=== PATIENT | female | born 1980 | race Caucasian/White ===

== ENCOUNTER 2019-07-24 06:58 | Emergency (ER) | payer SELFPAY ==
[2019-07-24 08:37] LABS: APPEARANCE,URINE SLIGHTLY-CLOUDY; BILIRUBIN,URINE NEGATIVE (NEGATIVE); COLOR,URINE YELLOW; GLUCOSE, URINE NEGATIVE (NEGATIVE); KETONES,URINE 80 mg/dL (NEGATIVE); LEUKOCYTE ESTERASE,URINE NEGATIVE (NEGATIVE); NITRITE,URINE NEGATIVE (NEGATIVE); PROTEIN,URINE 100 mg/dL (NEGATIVE); URINE SPECIFIC GRAVITY 1.024; UROBILINOGEN,URINE NEGATIVE mg/dL (<2.0)
[2019-07-24 08:38] LABS: HEMATOCRIT 28.9 % (36.0-47.0); HEMOGLOBIN 9.4 g/dL (12.0-15.5); MEAN CORPUSCULAR HEMOGLOBIN 24.9 pg (27.0-33.4); MEAN CORPUSCULAR HGB CONC 32.5 g/dL (32.0-36.0); MEAN CORPUSCULAR VOLUME 77 fl (80-97); PLATELET COUNT 184 10^3/uL (150-450); RED BLOOD COUNT 3.77 10^6/uL (3.72-5.28); RED CELL DISTRIBUTION WIDTH 16.4 % (11.5-14.0); WHITE BLOOD COUNT 12.2 10^3/uL (4.0-10.5)
[2019-07-24 08:50] LABS: ALBUMIN 3.5 g/dL (3.5-5.0); ALKALINE PHOSPHATASE 77 U/L (38-126); ANION GAP 9 (5-19); ASPARTATE AMINO TRANSFERASE 19 U/L (14-36); BILIRUBIN,DIRECT 0.1 mg/dL (0.0-0.4); BILIRUBIN,TOTAL 0.6 mg/dL (0.2-1.3); BLOOD UREA NITROGEN 13 mg/dL (7-20); CALCIUM 8.5 mg/dL (8.4-10.2); CARBON DIOXIDE 24 mmol/L (22-30); CHLORIDE 104 mmol/L (98-107); GLUCOSE 147 mg/dL (75-110); POTASSIUM 3.4 mmol/L (3.6-5.0); TOTAL PROTEIN 6.4 g/dL (6.3-8.2)
[2019-07-24 09:01] LABS: ABSOLUTE LYMPHOCYTES# (MANUAL) 0.2 10^3/uL (0.5-4.7); ABSOLUTE MONOCYTES # (MANUAL) 0.2 10^3/uL (0.1-1.4); BAND NEUTROPHILS % (MANUAL) 4 % (3-5); BASOPHILS % (MANUAL) 0 % (0-2); EOSINOPHILS % (MANUAL) 1 % (0-6); LYMPHOCYTES % (MANUAL) 2 % (13-45); MONOCYTES % (MANUAL) 2 % (3-13); SEGMENTED NEUTROPHILS % (MAN) 91 % (42-78); TOTAL CELLS COUNTED 100
[2019-07-24 09:02] LABS: HYPOCHROMASIA SLIGHT; TOXIC GRANULATION SLIGHT; TOXIC VACUOLATION PRESENT
[2019-07-24 09:03] LABS: ANISOCYTOSIS 1+; PLATELET COMMENT ADEQUATE
[2019-07-24] MEDS ORDERED: NORMAL SALINE 1000 ML 1,000 ML IV ONE (09:27)
[2019-07-24] MEDS ORDERED: KETOROLAC TROMETHAMINE INJ/PF 30 MG/1 ML SDV IV ONE (09:27)
[2019-07-24] MEDS ORDERED: ACETAMINOPHEN 325 MG TABLET PO ONE (09:28)
--- NOTE | 2019-07-24 09:30 | ER Document Report ---
ED Medical Screen (RME) - General Chief Complaint: Abdominal Pain Stated Complaint: ABDOMINAL PAIN Time Seen by Provider: 07/24/19 09:20 Primary Care Provider: MELODY KAUFFMAN PA-C [Primary Care Provider] - Follow up as needed Notes: Patient is a 38-year-old female with a history of pancreatitis who presents emergency department with a chief complaint of abdominal pain, lung pain and headache. Patient reports she has had generalized body aches for 2 days. Patient reports on Thursday she did vomit over 10 times which has subsided but she has had a decreased appetite. Patient reports at that time she did have a co uple of episodes of diarrhea without blood. Patient reports having a temperature as high as 102.8 at home. Patient reports a productive cough with brown sputum. 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 Patient reports a frontal headache. Patient reports generalized abdominal pain. TRAVEL OUTSIDE OF THE [place] IN LAST 30 DAYS: No - Related Data Allergies/Adverse Reactions: No Known Allergies Allergy (Verified 07/24/19 07:34) Past Medical History GI Medical History: Reports: Hx Gastroesophageal Reflux Disease - OCCASSIONAL. Denies: Hx Hiatal Hernia, Hx Ulcer Past Surgical History: Reports: Hx Section, Hx Cholecystectomy Physical Exam - Vital signs Vitals: Temp Pulse Resp BP Pulse Ox 101.6 F H 132 H 16 112/63 98 07/24/19 07:08 07/24/19 07:08 07/24/19 07:08 07/24/19 07:08 07/24/19 07:08 - Respiratory Respiratory status: No respiratory distress Chest status: Nontender Breath sounds: Normal Chest palpation: Normal Notes: Constant nonproductive cough noted during examination. - Cardiovascular Rhythm: Tachycardia Heart sounds: Normal auscultation, S1 appreciated, S2 appreciated - Abdominal Inspection: Normal Distension: No distension Bowel sounds: Normal Tenderness: Nontender Organomegaly: No organomegaly - No specific point tenderness to the abdomen. Course - Re-evaluation Re-evalutation: 07/24/19 09:30 Patient was noted to have a fever, is tachycardic and slightly dehydrated with ketones in the urine. Will start IV fluids, give Toradol for the body aches, Tylenol for her fever and test for the flu. Patient does have nonspecific abdominal pain and no point tenderness. No CVA tenderness. I have greeted and performed a rapid initial assessment of this patient. A comprehensive ED assessment and evaluation of the patient, analysis of test results and completion of the medical decision making process will be conducted by additional ED providers. - Vital Signs Vital signs: Temp Pulse Resp BP Pulse Ox 101.6 F H 132 H 16 112/63 98 07/24/19 07:08 07/24/19 07:08 07/24/19 07:08 07/24/19 07:08 07/24/19 07:08 - Laboratory Result Diagrams: 07/24/19 08:15 07/24/19 08:15 Laboratory results interpreted by me: 07/24/19 07/24/19 07/24/19 08:15 08:15 08:15 WBC 12.2 H Hgb 9.4 L Hct 28.9 L MCV 77 L MCH 24.9 L RDW 16.4 H Seg Neuts % (Manual) 91 H Lymphocytes % (Manual) 2 L Monocytes % (Manual) 2 L Abs Neuts (Manual) 11.6 H Abs Lymphs (Manual) 0.2 L Sodium 136.6 L Potassium 3.4 L Glucose 147 H Urine Protein 100 H Urine Ketones 80 H Urine Blood MODERATE H Doctor's Discharge - Discharge Referrals: MELODY KAUFFMAN PA-C [Primary Care Provider] - Follow up as needed
[2019-07-24 10:17] LABS: A TYPE INFLUENZA AG NEGATIVE (NEGATIVE); B INFLUENZA AG POSITIVE (NEGATIVE)
[2019-07-24] MEDS ORDERED: ONDANSETRON HCL INJ/PF 4 MG/2 ML SDV IV ONE (10:25)
--- NOTE | 2019-07-24 10:31 | ER Document Report ---
ED General - General Chief Complaint: Abdominal Pain Stated Complaint: ABDOMINAL PAIN Time Seen by Provider: 07/24/19 09:20 Primary Care Provider: MELODY KAUFFMAN PA-C [Primary Care Provider] - Follow up as needed Notes: 38-year-old female presents emergency department complaining of fever and vomiting since Thursday. She is felt a little better on Thursday but then the fever and vomiting returned today. She admits to a dry cough and postnasal drip, denies rhinorrhea. Patient has a history of pancreatitis and denies any similar symptoms. 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 TRAVEL OUTSIDE OF THE [place] IN LAST 30 DAYS: No - Related Data Allergies/Adverse Reactions: No Known Allergies Allergy (Verified 07/24/19 07:34) Past Medical History - General Information source: Patient - Social History Smoking Status: Never Smoker Frequency of alcohol use: None Drug Abuse: None Family History: Reviewed & Not Pertinent Patient has suicidal ideation: No Patient has homicidal ideation: No GI Medical History: Reports: Hx Gastroesophageal Reflux Disease - OCCASSIONAL. Denies: Hx Hiatal Hernia, Hx Ulcer Past Surgical History: Reports: Hx Section, Hx Cholecystectomy Review of Systems - Review of Systems Constitutional: See HPI EENT: See HPI Cardiovascular: No symptoms reported Respiratory: See HPI, Cough Gastrointestinal: See HPI -: Yes All other systems reviewed and negative Physical Exam - Vital signs Vitals: Temp Pulse Resp BP Pulse Ox 101.6 F H 132 H 16 112/63 98 07/24/19 07:08 07/24/19 07:08 07/24/19 07:08 07/24/19 07:08 07/24/19 07:08 Interpretation: Tachycardic, Febrile - Notes Notes: GENERAL: Alert, interacts well. No acute distress. HEAD: Normocephalic, atraumatic EYES: Pupils equal, round and reactive to light, extraocular movements intact. ENT: Oral mucosa moist, tongue midline. NECK: Full range of motion, supple, trachea midline. LUNGS: Clear to auscultation bilaterally, no wheezes, rales or rhonchi, no respiratory distress. HEART: Tachycardic rate and rhythm, no to 6 systolic murmur, no gallops or rubs. ABDOMEN: Soft, mild epigastric tenderness palpation, nondistended, bowel sounds present in all 4 quadrants. EXTREMITIES: Moves all 4 extremities spontaneously, no edema, radial and dorsalis pedis pulses 2/4 bilaterally. No cyanosis. NEUROLOGICAL: Alert and oriented x3, normal speech. PSYCH: Normal mood, normal affect. SKIN: Warm, Dry, normal turgor, no rashes or lesions noted. Course - Re-evaluation Re-evalutation: 07/24/19 11:27 CBC shows leukocytosis at 12.2, anemia with a hemoglobin of 9.4, likely iron deficiency given the MCV and MCH, patient asked to follow-up on this as an outpatient, CMP shows slightly low sodium and potassium, test negative and lipase are negative, urinalysis shows moderate blood, 80 ketones, only 4 RBCs, influenza B is positive. Patient has been given 2 L of fluid, she is tolerating oral intake without d ifficulty, discussed risks and benefits and side effects of Tamiflu with the patient, patient opted for symptomatic treatment instead. Patient will be discharged to home. - Vital Signs Vital signs: Temp Pulse Resp BP Pulse Ox 101.6 F H 132 H 16 112/63 98 07/24/19 07:08 07/24/19 07:08 07/24/19 07:08 07/24/19 07:08 07/24/19 07:08 - Laboratory Result Diagrams: 07/24/19 08:15 07/24/19 08:15 Laboratory results interpreted by me: 07/24/19 07/24/19 07/24/19 08:15 08:15 08:15 WBC 12.2 H Hgb 9.4 L Hct 28.9 L MCV 77 L MCH 24.9 L RDW 16.4 H Seg Neuts % (Manual) 91 H Lymphocytes % (Manual) 2 L Monocytes % (Manual) 2 L Abs Neuts (Manual) 11.6 H Abs Lymphs (Manual) 0.2 L Sodium 136.6 L Potassium 3.4 L Glucose 147 H Urine Protein 100 H Urine Ketones 80 H Urine Blood MODERATE H Discharge - Discharge Clinical Impression: Influenza B Anemia Qualifiers: Anemia type: iron deficiency Iron deficiency anemia type: unspecified iron deficiency Qualified Code(s): D50.9 - Iron deficiency anemia, unspecified Condition: Stable Disposition: HOME, SELF-CARE Additional Instructions: You tested positive for influenza B. Symptoms can include nausea, vomiting, diarrhea, fevers, muscle aches, headache, sore throat, runny nose. If any of your symptoms worsen please return to the emergency department. If you develop a severely stiff neck that you cannot bend please return to the emergency department. I have prescribed multiple medications to help with your symptoms. You may take the Zofran and Phenergan for nausea and vomiting, you may take the Bentyl for abdominal cramping, you may buy Imodium [id number] and used according to the box for diarrhea, you may use the Tessalon Perles as prescribed for cough. Please use ibuprofen (Motrin or Advil) 600-800 mg every 8 hours as needed for pain or fever. You may also use acetaminophen (Tylenol) 1000 mg every 4-6 hours as needed for pain or fever. Please be aware that many medications contain acetaminophen, do not exceed a total of 1000 mg of acetaminophen every 6 hours. Your testing also showed that you are anemic. Today her hemoglobin was 9.4. Looking at your CBC it appears that is likely from iron deficiency. Please follow-up with your primary care physician for further testing and treatment options. You were also found to have a very mild heart murmur today. Please follow-up with your primary care physician to make sure that this is recorded in your chart and to see if it is still there after the flu is gone. Prescriptions: Promethazine HCl [Phenergan 25 mg Tablet] 25 mg PO Q4HP PRN #20 tablet PRN Reason: Ondansetron [Zofran Odt 4 mg Tablet] 4 mg PO Q4HP PRN #14 tab.rapdis PRN Reason: Benzonatate [Tessalon Perles 100 mg Capsule] 100 mg PO Q8HP PRN #40 capsule PRN Reason: Dicyclomine HCl [Bentyl 20 mg Tablet] 20 mg PO QIDP PRN #20 tablet PRN Reason: Forms: Return to Work Referrals: MELODY KAUFFMAN PA-C [Primary Care Provider] - Follow up as needed
[2019-07-24 11:48] VITALS: BP 94/57
== END 2019-07-24 11:49 | disposition home or self-care (01) ==
LOC: ER 06:58
DX: J11.1 Influenza due to unidentified influenza virus with other respiratory manifestations (principal); D50.9 Iron deficiency anemia, unspecified; R10.9 Unspecified abdominal pain; R11.10 Vomiting, unspecified; R50.9 Fever, unspecified; Z90.49 Acquired absence of other specified parts of digestive tract
CPT/HCPCS: 99284; 96361; 96374; 96375; 36415; 84702; 83690; 85025; 80053; 81001; 87804; J1885; J2405; J7030

== ENCOUNTER 2019-07-31 17:21 | Observation (INO) | payer SELFPAY ==
[2019-07-31] MEDS ORDERED: NORMAL SALINE 1000 ML 1,000 ML IV ONE (17:46)
[2019-07-31] MEDS ORDERED: KETOROLAC TROMETHAMINE INJ/PF 30 MG/1 ML SDV IV ONE (17:46)
[2019-07-31] MEDS ORDERED: IPRATROPIUM/ALBUTEROL 0.5-2.5 MG/3 ML AMPUL NEB ONE ×2 (17:46→20:18)
--- NOTE | 2019-07-31 17:49 | ER Document Report ---
ED Medical Screen (RME) - General Chief Complaint: Cough Stated Complaint: COUGH,FEVER,CONGESTION Time Seen by Provider: 07/31/19 17:41 Primary Care Provider: MELODY KAUFFMAN PA-C [Primary Care Provider] - Follow up as needed TRAVEL OUTSIDE OF THE [place] IN LAST 30 DAYS: No - HPI Notes: 07/31/19 17:47 38 year old female to the ED with C/O persistent cough, fevers, chest tightness, congestion, body aches for over two weeks. She was seen one week ago and diagnosed with Flu B. She was out of range for treatment with Tamflu and was given Tessalon Perles. They did not help. She has been taking Tylenol and Motrin for fevers, but she has had difficulty controlling them. States her last dose of Tylenol was at 3 PM -- she has a triage temperature of 101. Admits to some occasional NV as well as SOB. I performed a brief medical screening exam on the patient and determined that the patient will need further management by mainside provider. I have placed initial orders to help expedite the patient's care today. - Related Data Allergies/Adverse Reactions: No Known Allergies Allergy (Verified 07/31/19 17:40) Past Medical History - Social History Chew tobacco use (# tins/day): No Drug Abuse: None GI Medical History: Reports: Hx Gastroesophageal Reflux Disease - OCCASSIONAL. Denies: Hx Hiatal Hernia, Hx Ulcer Past Surgical History: Reports: Hx Section, Hx Cholecystectomy Physical Exam - Vital signs Vitals: Temp Pulse Resp BP Pulse Ox 101.0 F H 121 H 18 129/75 H 96 07/31/19 17:28 07/31/19 17:28 07/31/19 17:28 07/31/19 17:28 07/31/19 17:28 Course - Vital Signs Vital signs: Temp Pulse Resp BP Pulse Ox 101.0 F H 121 H 18 129/75 H 96 07/31/19 17:40 07/31/19 17:28 07/31/19 17:40 07/31/19 17:28 07/31/19 17:40 Doctor's Discharge - Discharge Referrals: MELODY KAUFFMAN PA-C [Primary Care Provider] - Follow up as needed
[2019-07-31 18:49] LABS: ABSOLUTE BASOPHILS # (AUTO) 0.1 10^3/uL (0.0-0.2); ABSOLUTE EOSINOPHILS # (AUTO) 0.1 10^3/uL (0.0-0.6); ABSOLUTE LYMPHOCYTES (AUTO) 1.1 10^3/uL (0.5-4.7); ABSOLUTE MONOCYTES (AUTO) 0.7 10^3/uL (0.1-1.4); ABSOLUTE NEUT (AUTO) 11.5 10^3/uL (1.7-8.2); BASOPHILS % (AUTO) 0.6 % (0-2); EOSINOPHILS % (AUTO) 0.5 % (0-6); HEMATOCRIT 28.6 % (36.0-47.0); HEMOGLOBIN 9.1 g/dL (12.0-15.5); LYMPHOCYTES % (AUTO) 7.9 % (13-45); MEAN CORPUSCULAR HEMOGLOBIN 24.9 pg (27.0-33.4); MEAN CORPUSCULAR HGB CONC 31.9 g/dL (32.0-36.0); MEAN CORPUSCULAR VOLUME 78 fl (80-97); PLATELET COUNT 465 10^3/uL (150-450); RED BLOOD COUNT 3.67 10^6/uL (3.72-5.28); RED CELL DISTRIBUTION WIDTH 16.5 % (11.5-14.0); TOTAL CELLS COUNTED % (AUTO) 100 %; WHITE BLOOD COUNT 13.4 10^3/uL (4.0-10.5)
[2019-07-31 19:11] LABS: ALBUMIN 3.5 g/dL (3.5-5.0); ALKALINE PHOSPHATASE 107 U/L (38-126); ANION GAP 13 (5-19); ASPARTATE AMINO TRANSFERASE 21 U/L (14-36); BILIRUBIN,DIRECT 0.1 mg/dL (0.0-0.4); BILIRUBIN,TOTAL 0.5 mg/dL (0.2-1.3); BLOOD UREA NITROGEN 10 mg/dL (7-20); CALCIUM 8.6 mg/dL (8.4-10.2); CARBON DIOXIDE 26 mmol/L (22-30); CHLORIDE 100 mmol/L (98-107); GLUCOSE 100 mg/dL (75-110); POTASSIUM 4.3 mmol/L (3.6-5.0); TOTAL PROTEIN 6.8 g/dL (6.3-8.2)
--- NOTE | 2019-07-31 19:57 | RADIOLOGY REPORT (SQ) ---
EXAM DESCRIPTION: CHEST 2 VIEWS COMPLETED DATE/TIME: 07/31/2019 7:44 pm REASON FOR STUDY: cough, persistent fevers, recently diagnosed w flu COMPARISON: None. EXAM PARAMETERS: NUMBER OF VIEWS: two views TECHNIQUE: Digital Frontal and Lateral radiographic views of the chest acquired. RADIATION DOSE: NA LIMITATIONS: none FINDINGS: LUNGS AND PLEURA: No pneumothorax. No pleural effusion. Right upper lobe dense consolidat ion. MEDIASTINUM AND HILAR STRUCTURES: No masses or contour abnormalities. HEART AND VASCULAR STRUCTURES: Heart normal size. No evidence for failure. BONES: No acute findings. HARDWARE: None in the chest. OTHER: No other significant finding. IMPRESSION: Right upper lobe dense consolidation. TECHNICAL DOCUMENTATION: JOB ID: [id number] [id number] 2010 [employer]- All Rights Reserved Reading location - IP/workstation name: [employer]
[2019-07-31] MEDS ORDERED: KETOROLAC TROMETHAMINE INJ/PF 30 MG/1 ML SDV ONE (20:18)
[2019-07-31] MEDS ORDERED: ACETAMINOPHEN 325 MG TABLET PO ONE (20:22)
[2019-07-31 20:45] LABS: VENOUS BLOOD BASE EXCESS 0.2 mmol/L; VENOUS BLOOD HCO3 24.2 mmol/L (20-32); VENOUS BLOOD PH 7.43 (7.30-7.42)
[2019-07-31 20:51] LABS: PROTHROMBIN TIME 14.2 SEC (11.4-15.4)
[2019-07-31] MEDS ORDERED: CEFTRIAXONE INJ 1000 MG VIAL IV ONE (21:17)
[2019-07-31] MEDS ORDERED: AZITHROMYCIN INJ 500 MG VIAL IV ONE (21:19)
[2019-07-31] MEDS ORDERED: NORMAL SALINE IV ONE (21:21)
--- NOTE | 2019-07-31 21:30 | ER Document Report ---
ED Respiratory Problem - General Chief Complaint: Flu Symptoms Stated Complaint: COUGH,FEVER,CONGESTION Time Seen by Provider: 07/31/19 17:41 Primary Care Provider: MELODY KAUFFMAN PA-C [Primary Care Provider] - Follow up as needed Notes: 38-year-old woman presents to the emergency department history of fever, cough and feeling poorly. Currently seen and diagnosed with influenza approximately 1 week ago. Flu A positive, states she has continued to feel poorly with decreased appetite and intermittent fever, fatigue. Patient was evaluated via the triage process elevated white blood cell count and a right upper lobe consolidation noted on chest x-ray. Sepsis protocol was begun. Patient has no other known active medical conditions and is on no chronic medications. TRAVEL OUTSIDE OF THE [place] IN LAST 30 DAYS: No - Related Data Allergies/Adverse Reactions: No Known Allergies Allergy (Verified 07/31/19 17:40) Past Medical History - Social History Smoking Status: Never Smoker Chew tobacco use (# tins/day): No Drug Abuse: None Family History: Reviewed & Not Pertinent Patient has suicidal ideation: No Patient has homicidal ideation: No GI Medical History: Reports: Hx Gastroesophageal Reflux Disease - OCCASSIONAL. Denies: Hx Hiatal Hernia, Hx Ulcer Past Surgical History: Reports: Hx Section, Hx Cholecystectomy Review of Systems - Review of Systems Notes: Constitutional: + Fever, + Loss of appetite HENT: Negative for sore throat. Eyes: Negative for visual changes. Cardiovascular: Negative for chest pain. Respiratory: + Cough, + shortness of breath. Gastrointestinal: Negative for abdominal pain, vomiting or diarrhea. Genitourinary: Negative for dysuria. Musculoskeletal: Negative for back pain. Skin: Negative for rash. Neurological: Negative for headaches, weakness or numbness. 10 point ROS negative except as marked above and in HPI. Physical Exam - Vital signs Vitals: Temp Pulse Resp BP Pulse Ox 101.0 F H 121 H 18 129/75 H 96 07/31/19 17:28 07/31/19 17:28 07/31/19 17:28 07/31/19 17:28 07/31/19 17:28 - Notes Notes: PHYSICAL EXAMINATION: Physical Exam: General: Ill appearing 38-year-old woman in no acute distress HEENT: NC/AT, pupils equal round and reactive to light, MM moist,nares clear, Neck: supple, no adenopathy, no masses. Lungs: Coarse breath sounds right lung field, no wheezing, no rales no rhonchi CVS: Tachycardia rate and rhythm no murmur gallop or rub Abdomen: Soft, active nontender, no masses, no hepatosplenomegaly Ext: No edema clubbing or cyanosis. Neuro: Alert and responsive, moving all 4 extremities on command, cranial nerves intact. Skin: Intact no open lesions, no rash PSYCH: Normal mood, normal affect. Course - Re-evaluation Re-evalutation: Differential diagnosis Electrolyte imbalance, infection, pneumonia, bronchitis 07/31/19 21:31 38-year-old woman post influenza pneumonia. Apparently continued fever, fatigue, chills, and shortness of breath with cough. X-ray reveals a right upper lobe consolidation, elevated WBC and patient appears ill. I discussed wi th her the need for IV antibiotics and observation in the hospital with further testing and monitoring. Patient is agreeable with that plan. The hospitalist Dr Valero was contacted and will admit the patient to the hospital for further evaluation and treatment. 07/31/19 21:34 - Vital Signs Vital signs: Temp Pulse Resp BP Pulse Ox 101.0 F H 121 H 18 129/75 H 97 07/31/19 17:40 07/31/19 17:28 07/31/19 17:40 07/31/19 17:28 07/31/19 20:45 - Laboratory Result Diagrams: 07/31/19 18:32 07/31/19 18:32 Laboratory results interpreted by me: 07/31/19 07/31/19 07/31/19 18:32 18:32 20:32 WBC 13.4 H RBC 3.67 L Hgb 9.1 L Hct 28.6 L MCV 78 L MCH 24.9 L MCHC 31.9 L RDW 16.5 H Plt Count 465 H Lymph % (Auto) 7.9 L Absolute Neuts (auto) 11.5 H Seg Neutrophils % 86.0 H VBG pH 7.43 H Creatinine 0.50 L 07/31/19 21:33 I have reviewed laboratory data and used this information for the treatment decisions regarding the patient. Discharge - Discharge Clinical Impression: Shortness of breath, Tachycardia, Fever Community acquired pneumonia Qualifiers: Laterality: right Lung location: upper lobe of lung Qualified Code(s): J18.9 - Pneumonia, unspecified organism Disposition: ADMITTED OBSERVATION Admitting Provider: Clarence (Hospitalist) Unit Admitted: Medical Floor Referrals: MELODY KAUFFMAN PA-C [Primary Care Provider] - Follow up as needed
[2019-07-31] MEDS ORDERED: MAG HYDROX/AL HYDROX/SIMETH SUSP 30 ML UDCUP PO PRN (22:05)
[2019-07-31] MEDS ORDERED: MORPHINE SULFATE 10 MG/ML INJ IV PRN ×2 (22:05)
[2019-07-31] MEDS ORDERED: MAGNESIUM HYDROXIDE SUSP 30 ML UDCUP PO PRN (22:05)
[2019-07-31] MEDS ORDERED: MELATONIN 5 MG TABLET PO PRN (22:18)
--- NOTE | 2019-07-31 22:21 | EKG REPORT ---
SEVERITY:- OTHERWISE NORMAL ECG - SINUS TACHYCARDIA : Confirmed by: Adrián Alcantara MD 31-Jul-2019 22:21:13
[2019-07-31] MEDS ORDERED: AZITHROMYCIN INJ 500 MG VIAL IV PRN (22:25)
[2019-07-31] MEDS ORDERED: AZITHROMYCIN 500 MG in DEXTROSE 5%-WATER 250 ML IV ONE (23:00)
[2019-07-31] MEDS: IBUPROFEN 800 MG TABLET PO SCH (23:28)
[2019-07-31] MEDS: ACETAMINOPHEN 325 MG TABLET PO SCH (23:28)
[2019-07-31] MEDS: GUAIFENESIN SYRP 200 MG/10 ML UDC PO SCH (23:28)
[2019-07-31] MEDS: FAMOTIDINE 20 MG TABLET PO SCH (23:28)
[2019-07-31] MEDS: HEPARIN SOD (PORCINE) 5,000 UNIT/ML 1 ML VIAL SUBCUT SCH (23:30)
[2019-08-01] MEDS: GUAIFENESIN SYRP 200 MG/10 ML UDC PO SCH ×6 (01:01→21:05)
[2019-08-01] MEDS: ACETAMINOPHEN 325 MG TABLET PO SCH ×6 (01:01→21:05)
--- NOTE | 2019-08-01 03:08 | PDOC H&P ---
History of Present Illness Admission Date/PCP: 07/31/2019 21:35 MELODY KAUFFMAN PA-C Patient complains of: Cough History of Present Illness: IVIS FRIEDMAN is a 38 year old female who represented to the emergency room with a two-week history of cough. She endorses a severe nonproductive cough that has been present for the last 2 weeks accompanied by anorexia, continuous malaise and ague, persistent chest burning/tightness, intermittent dyspnea especially with exertion and intermittent fever and chills. Her cough is made worse by deep breathing and talking. She was seen in the emergency room 1 week ago and was treated with Tamiflu for a positive influenza B test. She gained no relief from taking Tamiflu, Tessalon Perles, Bentyl, Phenergan and Zofran and has been having difficulty controlling her fever despite taking Tylenol and Motrin. In the emergency room she was found to have an elevated WBC of 13,400 and a chest x-ray revealing a right upper lobe pneumonia. She was subsequently admitted to the hospital on inpatient observation status for further evaluation and treatment. Past Medical History Cardiac Medical History: Denies: Coronary Artery Disease, Hypertension Pulmonary Medical History: Denies: Asthma, Chronic Obstructive Pulmonary Disease (COPD) EENT Medical History: Denies: Cataracts, Ears - Hearing aids Neurological Medical History: Denies: Hemorrhagic CVA, Ischemic CVA, Seizures Endocrine Medical History: Denies: Diabetes Mellitus Type 1, Diabetes Mellitus Type 2, Hyperthyroidism, Hypothyroidism, Obesity Renal/ Medical History: Denies: Chronic Kidney Disease, Nephrolithiasis Malignancy Medical History: Reports: None GI Medical History: Reports: Gastroesophageal Reflux Disease Denies: Cirrhosis, Crohn's Disease, Hepatitis, Hiatal Hernia, Peptic Ulcer Disease, Ulcerative Colitis Musculoskeltal Medical History: Denies: Arthritis, Fibromyalgia, Gout Skin Medical History: Denies: Eczema, Psoriasis Psychiatric Medical History: Denies: Alcohol Dependency, Substance Abuse, Tobacco Dependency Traumatic Medical History: Reports: None Hematology: Denies: Anemia, Bleeding Tendencies Infectious Medical History: Reports: None Past Surgical History Past Surgical History: Reports: Section - X 2, Cholecystectomy Social History Information Source: Patient Lives with: Family, Spouse/Significant other Smoking Status: Never Smoker Electronic Cigarette use?: No Frequency of Alcohol Use: None Hx Recreational Drug Use: No Drugs: None Hx Prescription Drug Abuse: No - Advance Directive Resuscitation Status: Full Code Surrogate healthcare decision maker:: Sandor Eyota Family History Family History: denies: CAD, DM, Hypertension, Malignancy Parental Family History Reviewed: Yes Children Family History Reviewed: No Sibling(s) Family History Reviewed.: Yes Medication/Allergy Home Medications: Amox Tr/Potassium Clavulanate [Augmentin 875-125 Tablet] 1 tab PO BID 7 Days tablet 02/25/15 Benzonatate [Tessalon Perles 100 mg Capsule] 100 mg PO Q8HP PRN #40 capsule 07/24/19 Dicyclomine HCl [Bentyl 20 mg Tablet] 20 mg PO QIDP PRN #20 tablet 07/24/19 Ondansetron [Zofran Odt 4 mg Tablet] 4 mg PO Q4HP PRN #14 tab.rapdis 07/24/19 Promethazine HCl [Phenergan 25 mg Tablet] 25 mg PO Q4HP PRN #20 tablet 07/24/19 Allergies/Adverse Reactions: No Known Allergies Allergy (Verified 07/31/19 17:40) Review of Systems Constitutional: PRESENT: as per HPI, anorexia, chills, fever(s), other - Malaise and ague Eyes: ABSENT: visual disturbances, other Ears: ABSENT: hearing changes, other Nose, Mouth, and Throat: ABSENT: mouth pain, sore throat Cardiovascular: PRESENT: as per HPI, chest pain, dyspnea on exertion. ABSENT: palpitations Respiratory: PRESENT: as per HPI, cough, dyspnea. ABSENT: sputum Gastrointestinal: ABSENT: abdominal pain, constipation, diarrhea, nausea, vomiting Genitourinary: ABSENT: dysuria, hematuria Musculoskeletal: ABSENT: back pain, joint swelling, muscle weakness Integumentary: ABSENT: pruritus, rash Neurological: ABSENT: confusion, convulsions, focal weakness, memory loss, syncope Psychiatric: ABSENT: anxiety, depression Endocrine: ABSENT: cold intolerance, heat intolerance Hematologic/Lymphatic: ABSENT: easy bleeding, easy bruising Allergic/Immunologic: ABSENT: seasonal rhinorrhea Physical Exam Vital Signs: Temp Pulse Resp BP Pulse Ox 101.0 F H 121 H 18 129/75 H 97 07/31/19 17:40 07/31/19 17:28 07/31/19 17:40 07/31/19 17:28 07/31/19 20:45 Intake & Output 07/29/19 07/30/19 07/31/19 23:59 23:59 23:59 Weight 53.7 kg General appearance: PRESENT: cooperative, mild distress, other - Appears acutely ill Head exam: PRESENT: atraumatic, normocephalic Eye exam: PRESENT: conjunctiva pink. ABSENT: conjunctival injection, scleral icterus Ear exam: PRESENT: normal external ear exam. ABSENT: bleeding, drainage Mouth exam: PRESENT: dry mucosa, neck supple Neck exam: ABSENT: thyromegaly, tracheal deviation Respiratory exam: PRESENT: decreased breath sounds - Right upper lung rodriguez, rales - Few coarse rales noted in the right upper lung field. Anteriorly and posteriorly, rhonchi - Rare coarse rhonchi noted in the right upper lung rodriguez, symmetrical, tachypnea, unlabored Cardiovascular exam: PRESENT: RRR, tachycardia. ABSENT: clicks, gallop, rubs Pulses: PRESENT: normal radial pulses, normal dorsalis pedis pul Vascular exam: PRESENT: normal capillary refill. ABSENT: pallor GI/Abdominal exam: PRESENT: normal bowel sounds, soft Rectal exam: PRESENT: deferred Extremities exam: ABSENT: joint swelling, pedal edema Musculoskeletal exam: ABSENT: deformity, dislocation Neurological exam: PRESENT: alert, oriented to person, oriented to place, oriented to time, oriented to situation, CN II-XII grossly intact. ABSENT: motor sensory deficit Psychiatric exam: PRESENT: appropriate affect, normal mood Skin exam: PRESENT: dry, intact, warm. ABSENT: jaundice, rash, urticaria Results Laboratory Results: 07/31/19 18:32 07/31/19 18:32 07/31/19 07/31/19 07/31/19 18:32 18:32 18:32 WBC 13.4 H RBC 3.67 L Hgb 9.1 L Hct 28.6 L MCV 78 L MCH 24.9 L MCHC 31.9 L RDW 16.5 H Plt Count 465 H Seg Neutrophils % 86.0 H VBG pH VBG pCO2 VBG HCO3 VBG Base Excess Sodium 139.0 Potassium 4.3 Chloride 100 Carbon Dioxide 26 Anion Gap 13 BUN 10 Creatinine 0.50 L Est GFR ( Amer) > 60 Glucose 100 Calcium 8.6 Total Bilirubin 0.5 AST 21 Alkaline Phosphatase 107 Total Protein 6.8 Albumin 3.5 Serum HCG, Qual NEGATIVE 07/31/19 20:32 WBC RBC Hgb Hct MCV MCH MCHC RDW Plt Count Seg Neutrophils % VBG pH 7.43 H VBG pCO2 37.0 VBG HCO3 24.2 VBG Base Excess 0.2 Sodium Potassium Chloride Carbon Dioxide Anion Gap BUN Creatinine Est GFR ( Amer) Glucose Calcium Total Bilirubin AST Alkaline Phosphatase Total Protein Albumin Serum HCG, Qual 07/31/19 20:32 Troponin I < 0.012 Impressions: Chest X-Ray 07/31/19 17:46 IMPRESSION: Right upper lobe dense consolidation. Assessment and Plan - Diagnosis (1) Right upper lobe pneumonia Qualifiers: Pneumonia type: due to unspecified organism Qualified Code(s): J18.9 - Pneumonia, unspecified organism Is this a current diagnosis for this admission?: Yes (2) Leukocytosis Qualifiers: Leukocytosis type: unspecified Qualified Code(s): D72.829 - Elevated white blood cell count, unspecified Is this a current diagnosis for this admission?: Yes (3) Fever and chills Is this a current diagnosis for this admission?: Yes (4) Cough Is this a current diagnosis for this admission?: Yes - Plan Summary Summary: Patient is admitted to inpatient observation status on a medical floor where she will receive routine supportive and symptomatic cares. She will be treated with a pulmonary toilet utilizing Xopenex and Mucomyst. She will receive ibuprofen and acetaminophen on a scheduled basis for control of her fever. She will be treated with Rocephin and Zithromax as a community-acquired pneumonia. She will use morphine sulfate 2 to 4 mg IV every 2 hours on an as-needed basis for control of pain not responding to her scheduled acetaminophen and ibuprofen regimen. CBC's and metabolic profiles will be followed as needed. - Time Time Spent with patient: 15-24 minutes Medications reviewed and adjusted accordingly: Yes Anticipated discharge: Home Within: within 48 hours - Inpatient Certification Based on my medical assessment, after consideration of the patient's comorbidities, presenting symptoms, or acuity I expect that the services needed warrant INPATIENT care.: No I certify that my determination is in accordance with my understanding of Medicare's requirements for reasonable and necessary INPATIENT services [42 CFR 412.3e].: No Medical Necessity: Failure to Improve With Outpatient Therapy, Need for Nebulizer Therapy and Monitoring of Response
[2019-08-01 03:17] LABS: MEAN CORPUSCULAR HGB CONC 32.4 g/dL (32.0-36.0); MEAN CORPUSCULAR VOLUME 77 fl (80-97); PLATELET COUNT 293 10^3/uL (150-450); RED BLOOD COUNT 2.86 10^6/uL (3.72-5.28); RED CELL DISTRIBUTION WIDTH 16.1 % (11.5-14.0); WHITE BLOOD COUNT 9.7 10^3/uL (4.0-10.5)
[2019-08-01 03:21] LABS: HEMOGLOBIN 7.1 g/dL (12.0-15.5)
[2019-08-01 03:37] LABS: ANION GAP 9 (5-19); BLOOD UREA NITROGEN 6 mg/dL (7-20); CALCIUM 7.3 mg/dL (8.4-10.2); CARBON DIOXIDE 22 mmol/L (22-30); CHLORIDE 111 mmol/L (98-107); GLUCOSE 107 mg/dL (75-110); POTASSIUM 3.5 mmol/L (3.6-5.0)
[2019-08-01] MEDS: HEPARIN SOD (PORCINE) 5,000 UNIT/ML 1 ML VIAL SUBCUT SCH ×3 (05:49→21:06)
[2019-08-01] MEDS: IBUPROFEN 800 MG TABLET PO SCH ×3 (05:50→21:58)
[2019-08-01 07:13] LABS: IRON(TIBC) 14.9 ug/dL (37-170)
[2019-08-01 07:15] LABS: ABSOLUTE RETICS # 0.017 10^6/uL (0.028-0.122)
[2019-08-01] MEDS: ACETYLCYSTEINE 20% SOLN 800 MG/4 ML VIAL.NEB NEB SCH ×3 (07:56→19:54)
[2019-08-01 08:13] LABS: APPEARANCE,URINE SLIGHTLY-CLOUDY; BILIRUBIN,URINE NEGATIVE (NEGATIVE); COLOR,URINE YELLOW; GLUCOSE, URINE NEGATIVE (NEGATIVE); KETONES,URINE NEGATIVE (NEGATIVE); PROTEIN,URINE NEGATIVE (NEGATIVE); URINE SPECIFIC GRAVITY 1.018; UROBILINOGEN,URINE NEGATIVE mg/dL (<2.0)
[2019-08-01 08:20] LABS: FOLATE 6.75 ng/mL (>2.76)
[2019-08-01] MEDS ORDERED: FERRIC CARBOXYMALTOSE INJ 750 MG/15 ML VIAL IV STA (08:34)
--- NOTE | 2019-08-01 08:38 | PDOC PROGRESS REPORT ---
Subjective Progress Note for:: 08/01/19 Subjective:: 08/01/2019-no complaints this a.m. Reason For Visit: COMMUNITY ACQUIRED RIGHT UPPER LOBE PNEUMONIA Physical Exam Vital Signs: Temp Pulse Resp BP Pulse Ox 98.5 F 102 H 18 124/69 96 08/01/19 07:26 08/01/19 07:26 08/01/19 07:26 08/01/19 07:26 08/01/19 07:26 Intake & Output 07/31/19 08/01/19 08/02/19 06:59 06:59 06:59 Intake Total 2880 Output Total 400 Balance 2480 Weight 57 kg General appearance: PRESENT: no acute distress, well-developed, well-nourished Head exam: PRESENT: atraumatic, normocephalic Eye exam: PRESENT: conjunctiva pink, EOMI, PERRLA. ABSENT: scleral icterus Ear exam: PRESENT: normal external ear exam Mouth exam: PRESENT: moist, tongue midline Neck exam: ABSENT: carotid bruit, JVD, lymphadenopathy, thyromegaly Respiratory exam: PRESENT: clear to auscultation [place]. ABSENT: rales, rhonchi, wheezes Cardiovascular exam: PRESENT: RRR. ABSENT: diastolic murmur, rubs, systolic murmur Pulses: PRESENT: normal dorsalis pedis pul Vascular exam: PRESENT: normal capillary refill GI/Abdominal exam: PRESENT: normal bowel sounds, soft. ABSENT: distended, guarding, mass, organolmegaly, rebound, tenderness Rectal exam: PRESENT: deferred Extremities exam: PRESENT: full ROM. ABSENT: calf tenderness, clubbing, pedal edema Neurological exam: PRESENT: alert, awake, oriented to person, oriented to place, oriented to time, oriented to situation, CN II-XII grossly intact. ABSENT: motor sensory deficit Psychiatric exam: PRESENT: appropriate affect, normal mood. ABSENT: homicidal ideation, suicidal ideation Skin exam: PRESENT: dry, intact, warm. ABSENT: cyanosis, rash Results Laboratory Results: 08/01/19 03:05 08/01/19 03:05 07/31/19 07/31/19 07/31/19 18:32 18:32 18:32 WBC 13.4 H RBC 3.67 L Hgb 9.1 L Hct 28.6 L MCV 78 L MCH 24.9 L MCHC 31.9 L RDW 16.5 H Plt Count 465 H Seg Neutrophils % 86.0 H Retic Count (auto) VBG pH VBG pCO2 VBG HCO3 VBG Base Excess Sodium 139.0 Potassium 4.3 Chloride 100 Carbon Dioxide 26 Anion Gap 13 BUN 10 Creatinine 0.50 L Est GFR ( Amer) > 60 Glucose 100 Calcium 8.6 Iron TIBC % Saturation Ferritin Total Bilirubin 0.5 AST 21 Alkaline Phosphatase 107 Total Protein 6.8 Albumin 3.5 Vitamin B12 Folate Serum HCG, Qual NEGATIVE Urine Color Urine Appearance Urine pH Ur Specific Mullin Urine Protein Urine Glucose (UA) Urine Ketones Urine Blood Urine RBC (Auto) 07/31/19 08/01/19 08/01/19 20:32 03:05 03:05 WBC 9.7 RBC 2.86 L Hgb 7.1 L Hct 22.0 L MCV 77 L MCH 25.0 L MCHC 32.4 RDW 16.1 H Plt Count 293 Seg Neutrophils % Retic Count (auto) VBG pH 7.43 H VBG pCO2 37.0 VBG HCO3 24.2 VBG Base Excess 0.2 Sodium 141.9 Potassium 3.5 L Chloride 111 H Carbon Dioxide 22 Anion Gap 9 BUN 6 L Creatinine 0.43 L Est GFR ( Amer) > 60 Glucose 107 Calcium 7.3 L Iron TIBC % Saturation Ferritin Total Bilirubin AST Alkaline Phosphatase Total Protein Albumin Vitamin B12 Folate Serum HCG, Qual Urine Color Urine Appearance Urine pH Ur Specific Mullin Urine Protein Urine Glucose (UA) Urine Ketones Urine Blood Urine RBC (Auto) 08/01/19 08/01/19 08/01/19 03:05 03:05 07:50 WBC RBC Hgb Hct MCV MCH MCHC RDW Plt Count Seg Neutrophils % Retic Count (auto) 0.60 L VBG pH VBG pCO2 VBG HCO3 VBG Base Excess Sodium Potassium Chloride Carbon Dioxide Anion Gap BUN Creatinine Est GFR ( Amer) Glucose Calcium Iron 14.9 L TIBC 231 L % Saturation 6 Ferritin 57.10 Total Bilirubin AST Alkaline Phosphatase Total Protein Albumin Vitamin B12 784.0 Folate 6.75 Serum HCG, Qual Urine Color YELLOW Urine Appearance SLIGHTLY-CLOUDY Urine pH 5.0 Ur Specific Mullin 1.018 Urine Protein NEGATIVE Urine Glucose (UA) NEGATIVE Urine Ketones NEGATIVE Urine Blood NEGATIVE Urine RBC (Auto) 3 07/31/19 20:32 Troponin I < 0.012 Impressions: Chest X-Ray 07/31/19 17:46 IMPRESSION: Right upper lobe dense consolidation. Assessment and Plan - Diagnosis (1) Right upper lobe pneumonia Qualifiers: Pneumonia type: due to unspecified organism Qualified Code(s): J18.9 - Pneumonia, unspecified organism Is this a current diagnosis for this admission?: Yes Plan: 08/01/2019-continue Rocephin and azithromycin. Await cultures. (2) Cough Is this a current diagnosis for this admission?: Yes Plan: 08/01/2019-stable at this time. Add antitussives as necessary (3) Fever and chills Is this a current diagnosis for this admission?: Yes Plan: 08/01/2019-resolved stable (4) Leukocytosis Qualifiers: Leukocytosis type: unspecified Qualified Code(s): D72.829 - Elevated white blood cell count, unspecified Is this a current diagnosis for this admission?: Yes Plan: 08/01/2019-resolved stable (5) Iron deficiency anemia Is this a current diagnosis for this admission?: Yes Plan: 08/01/2019-we will give patient a one-time dose of ferric carboxy maltase 750 mg followed by ferrous sulfate 325 mg p.o. twice daily. - Plan Summary Summary: Patient is admitted to inpatient observation status on a medical floor where she will receive routine supportive and symptomatic cares. She will be treated with a pulmonary toilet utilizing Xopenex and Mucomyst. She will receive ibuprofen and acetaminophen on a scheduled basis for control of her fever. She will be treated with Rocephin and Zithromax as a community-acquired pneumonia. She will use morphine sulfate 2 to 4 mg IV every 2 hours on an as-needed basis for control of pain not responding to her scheduled acetaminophen and ibuprofen regimen. CBC's and metabolic profiles will be followed as needed. - Time Time Spent with patient: 15-24 minutes - Inpatient Certification Based on my medical assessment, after consideration of the patient's comorbidities, presenting symptoms, or acuity I expect that the services needed warrant INPATIENT care.: Yes I certify that my determination is in accordance with my understanding of Medicare's requirements for reasonable and necessary INPATIENT services [42 CFR 412.3e].: Yes Medical Necessity: Need for IV Antibiotics
[2019-08-01] MEDS: LEVALBUTEROL HCL NEB 0.63 MG/3 ML AMPUL NEB PRN ×2 (08:40→19:54)
[2019-08-01] MEDS: DOCUSATE SODIUM 100 MG CAPSULE PO SCH ×2 (09:54→17:09)
[2019-08-01] MEDS: FAMOTIDINE 20 MG TABLET PO SCH ×2 (09:55→21:06)
[2019-08-01] MEDS: FERROUS SULFATE 325 MG TABLET PO SCH ×2 (09:55→17:09)
[2019-08-01] MEDS ORDERED: FERRIC CARBOXYMALTOSE 750 MG in NORMAL SALINE 250 ML IV ONE (10:30)
[2019-08-01] MEDS: PROMETHAZINE HCL INJ 25 MG/1 ML VIAL IV PRN (10:31)
[2019-08-01] MEDS: MORPHINE SULFATE 10 MG/ML INJ IV PRN ×2 (10:31→23:20)
[2019-08-01 10:53] LABS: HEMATOCRIT 23.4 % (36.0-47.0); MEAN CORPUSCULAR HEMOGLOBIN 24.9 pg (27.0-33.4); MEAN CORPUSCULAR HGB CONC 32.7 g/dL (32.0-36.0); MEAN CORPUSCULAR VOLUME 76 fl (80-97); PLATELET COUNT 319 10^3/uL (150-450); RED BLOOD COUNT 3.09 10^6/uL (3.72-5.28); RED CELL DISTRIBUTION WIDTH 16.3 % (11.5-14.0); WHITE BLOOD COUNT 10.1 10^3/uL (4.0-10.5)
[2019-08-01 11:01] LABS: HEMOGLOBIN 7.7 g/dL (12.0-15.5)
[2019-08-01] MEDS ORDERED: INFLUENZA QUAD (6MOS+) 2019-20 VAC 0.5 ML SYR IM ONE (15:19)
[2019-08-01] MEDS: CEFTRIAXONE 1 GM/D5W RTU 1 GM/50 ML RTUPB IV SCH (21:07)
[2019-08-01] MEDS: AZITHROMYCIN 500 MG in DEXTROSE 5%-WATER 250 ML IV SCH (21:58)
[2019-08-02] MEDS: ACETAMINOPHEN 325 MG TABLET PO SCH ×6 (02:36→21:11)
[2019-08-02] MEDS: GUAIFENESIN SYRP 200 MG/10 ML UDC PO SCH ×6 (02:36→21:11)
[2019-08-02] MEDS: IBUPROFEN 800 MG TABLET PO SCH ×3 (05:30→22:08)
[2019-08-02] MEDS: HEPARIN SOD (PORCINE) 5,000 UNIT/ML 1 ML VIAL SUBCUT SCH ×3 (05:31→21:11)
[2019-08-02 06:32] LABS: ANION GAP 11 (5-19); BLOOD UREA NITROGEN 6 mg/dL (7-20); CALCIUM 8.2 mg/dL (8.4-10.2); CARBON DIOXIDE 25 mmol/L (22-30); CHLORIDE 106 mmol/L (98-107); GLUCOSE 86 mg/dL (75-110); POTASSIUM 3.8 mmol/L (3.6-5.0)
[2019-08-02] MEDS: ACETYLCYSTEINE 20% SOLN 800 MG/4 ML VIAL.NEB NEB SCH ×2 (08:37→20:14)
[2019-08-02] MEDS: LEVALBUTEROL HCL NEB 0.63 MG/3 ML AMPUL NEB PRN ×2 (08:37→20:14)
[2019-08-02] MEDS: FAMOTIDINE 20 MG TABLET PO SCH ×2 (09:33→21:13)
[2019-08-02] MEDS: FERROUS SULFATE 325 MG TABLET PO SCH (09:33)
[2019-08-02] MEDS: DOCUSATE SODIUM 100 MG CAPSULE PO SCH (09:34)
[2019-08-02] MEDS ORDERED: NORMAL SALINE 1000 ML 1,000 ML IV ONE (17:39)
--- NOTE | 2019-08-02 17:42 | PDOC PROGRESS REPORT ---
Subjective Progress Note for:: 08/02/19 Subjective:: Patient still experiencing some cough. Denies chest pain. Endorses mild shortness of breath. Reason For Visit: COMMUNITY ACQUIRED RIGHT UPPER LOBE PNEUMONIA Physical Exam Vital Signs: Temp Pulse Resp BP Pulse Ox 98.4 F 104 H 12 110/67 96 08/02/19 11:23 08/02/19 11:23 08/02/19 11:23 08/02/19 11:23 08/02/19 11:23 Pulse Oximeter Continuous Start: 07/31/19 22:00 Freq: RTQ4 Status: Complete Protocol: Document 08/01/19 08:40 [facility] (Rec: 08/01/19 08:51 [facility] [id number]) Pulse Oximetry Assessment Oxygen Saturation (92-100) 98 Oxygen Delivery Method Room Air Fraction of Inspired Oxygen (FIO2) 21 Equipment Usage Equipment in Use Continuous SpO2 Machine # -- Intake & Output 08/01/19 08/02/19 08/03/19 06:59 06:59 06:59 Intake Total 2880 1830 900 Output Total 400 500 Balance 2480 1330 900 Weight 57 kg 57.5 kg General appearance: PRESENT: no acute distress, cooperative Neck exam: ABSENT: JVD Respiratory exam: PRESENT: decreased breath sounds - Decreased breath and pain right upper lobe, symmetrical, unlabored. ABSENT: tachypnea, wheezes Cardiovascular exam: PRESENT: RRR, +S1, +S2. ABSENT: tachycardia GI/Abdominal exam: PRESENT: normal bowel sounds, soft. ABSENT: rebound, rigid, tenderness Neurological exam: PRESENT: alert, awake Results Laboratory Results: 08/01/19 10:12 08/02/19 05:23 08/02/19 05:23 Sodium 141.9 Potassium 3.8 Chloride 106 Carbon Dioxide 25 Anion Gap 11 BUN 6 L Creatinine 0.46 L Est GFR ( Amer) > 60 Glucose 86 Calcium 8.2 L 07/31/19 20:32 Troponin I < 0.012 Impressions: Chest X-Ray 07/31/19 17:46 IMPRESSION: Right upper lobe dense consolidation. Assessment and Plan - Diagnosis (1) Community acquired bacterial pneumonia Is this a current diagnosis for this admission?: Yes Plan: Sputum culture growing Streptococcus Continue on ceftriaxone and azithromycin for now Follow-up blood cultures which are negative at 1 day IV fluids Continue Mucomyst and Robitussin to help with expectoration (2) Iron deficiency anemia Qualifiers: Iron deficiency anemia type: chronic blood loss Qualified Code(s): D50.0 - Iron deficiency anemia secondary to blood loss (chronic) Is this a current diagnosis for this admission?: Yes Plan: Patient has significant iron deficiency anemia. I suspect this may be from menorrhagia but to have more elaborate discussion regarding this patient. Patient received a dose of Injectafer. No change ferrous sulfate dose to 325mg daily to reduce event of side effect (3) Leukocytosis Qualifiers: Leukocytosis type: unspecified Qualified Code(s): D72.829 - Elevated white blood cell count, unspecified Is this a current diagnosis for this admission?: Yes - Time Time Spent with patient: 15-24 minutes
[2019-08-02] MEDS: MORPHINE SULFATE 10 MG/ML INJ IV PRN (21:12)
[2019-08-02] MEDS: CEFTRIAXONE 1 GM/D5W RTU 1 GM/50 ML RTUPB IV SCH (21:13)
[2019-08-02] MEDS: AZITHROMYCIN 500 MG in DEXTROSE 5%-WATER 250 ML IV SCH (22:08)
[2019-08-02] MEDS: PROMETHAZINE HCL INJ 25 MG/1 ML VIAL IV PRN (22:14)
[2019-08-03] MEDS: ACETAMINOPHEN 325 MG TABLET PO SCH ×3 (01:59→09:09)
[2019-08-03] MEDS: GUAIFENESIN SYRP 200 MG/10 ML UDC PO SCH ×3 (01:59→09:08)
[2019-08-03 05:33] LABS: HEMATOCRIT 23.9 % (36.0-47.0); MEAN CORPUSCULAR HEMOGLOBIN 25.3 pg (27.0-33.4); MEAN CORPUSCULAR HGB CONC 32.8 g/dL (32.0-36.0); MEAN CORPUSCULAR VOLUME 77 fl (80-97); PLATELET COUNT 438 10^3/uL (150-450); RED BLOOD COUNT 3.09 10^6/uL (3.72-5.28); RED CELL DISTRIBUTION WIDTH 16.6 % (11.5-14.0); WHITE BLOOD COUNT 9.3 10^3/uL (4.0-10.5)
[2019-08-03] MEDS: IBUPROFEN 800 MG TABLET PO SCH (05:46)
[2019-08-03] MEDS: HEPARIN SOD (PORCINE) 5,000 UNIT/ML 1 ML VIAL SUBCUT SCH (05:47)
[2019-08-03 06:05] LABS: ABSOLUTE LYMPHOCYTES# (MANUAL) 1.4 10^3/uL (0.5-4.7); ABSOLUTE MONOCYTES # (MANUAL) 0.7 10^3/uL (0.1-1.4); BAND NEUTROPHILS % (MANUAL) 2 % (3-5); BASOPHILS % (MANUAL) 0 % (0-2); EOSINOPHILS % (MANUAL) 0 % (0-6); LYMPHOCYTES % (MANUAL) 15 % (13-45); MONOCYTES % (MANUAL) 8 % (3-13); SEGMENTED NEUTROPHILS % (MAN) 75 % (42-78); TOTAL CELLS COUNTED 100
[2019-08-03 06:06] LABS: ANISOCYTOSIS 1+; HYPOCHROMASIA SLIGHT; POLYCHROMASIA SLIGHT; TOXIC GRANULATION 1+
[2019-08-03 06:07] LABS: HEMOGLOBIN 7.8 g/dL (12.0-15.5); OVALOCYTES SLIGHT; PLATELET COMMENT ADEQUATE; POIKILOCYTOSIS SLIGHT
[2019-08-03] MEDS: FAMOTIDINE 20 MG TABLET PO SCH (09:09)
[2019-08-03] MEDS: PROMETHAZINE HCL INJ 25 MG/1 ML VIAL IV PRN (09:12)
[2019-08-03] MEDS ORDERED: FERROUS SULFATE 325 MG TABLET PO SCH (10:00)
[2019-08-03] MEDS: ACETYLCYSTEINE 20% SOLN 800 MG/4 ML VIAL.NEB NEB SCH (10:40)
--- NOTE | 2019-08-03 11:05 | PDOC DISCHARGE SUMMARY ---
Impression - Admit/DC Date/PCP Admission Date/Primary Care Provider: 07/31/19 22:26 MELODY KAUFFMAN PA-C Discharge Date: 08/03/19 - Discharge Diagnosis (1) Community acquired bacterial pneumonia Is this a current diagnosis for this admission?: Yes (2) Iron deficiency anemia Is this a current diagnosis for this admission?: Yes (3) Leukocytosis Is this a current diagnosis for this admission?: Yes - Assessment Summary: On presentation to the ER, patient was hemodynamically stable. Patient did endorse shortness of breath, cough fever and chills. Lab work revealed neutrophilic predominant leukocytosis. Lactic acid was normal. Chest x-ray revealed significant consolidation in the right upper lobe indicative of right upper lobe pneumonia. Patient was suspected to have bacterial community- acquired post influenza pneumonia as patient had significant cough with productive sputum, dense consolidation on chest x-ray and recently tested positive for influenza B about 7 days prior to presentation for which she was treated with Tamiflu. Patient was started on treatment with IV fluids, ceftriaxone and azithromycin. Blood cultures were obtained prior which were negative at 48 hours. Sputum cultures grew group A strep, gram-positive cocci in clusters as well as normal ela. Patient was also given expectorants and the symptoms have started to improve. Patient is being transitioned to oral Levaquin for 4 more days to complete a 7-day course of antibiotics. Leukocytosis is currently resolved. Of note, patient was also noted to have hemoglobin levels of 7s. B12 and folic acid levels were normal but iron studies revealed significant iron deficiency anemia. My suspicion is that this may be secondary to chronic blood loss from menstruation. Patient states that her menstruation periods are not heavy but denies any evidence of GI bleeds. She received 1 dose of Injectafer and now being placed on ferrous sulfate daily. Patient has been instructed to see her band nailer regarding ways to address potential heavy periods and contraceptive choices in order to help limit her anemia. - Additional Information Resuscitation Status: Full Code Discharge Activity: Activity As Tolerated Referrals: MELODY KAUFFMAN PA-C [Primary Care Provider] - 08/12/19 10:30 am Prescriptions: Ferrous Sulfate [Feosol 325 mg Tablet] 325 mg PO DAILY #30 tablet Levofloxacin [Levaquin 750 mg Tablet] 750 mg PO DAILY #4 tab Guaifenesin [Robitussin Syrup 200 mg/10 ml Ud Cup] 200 mg PO Q4HP PRN #200 ml PRN Reason: Home Medications: Ferrous Sulfate [Feosol 325 mg Tablet] 325 mg PO DAILY #30 tablet 08/03/19 Guaifenesin [Robitussin Syrup 200 mg/10 ml Ud Cup] 200 mg PO Q4HP PRN #200 ml 08/03/19 Levofloxacin [Levaquin 750 mg Tablet] 750 mg PO DAILY #4 tab 08/03/19 History of Present Illiness History of Present Illness: IVIS FRIEDMAN is a 38 year old female who represented to the emergency room with a two-week history of cough. She endorses a severe nonproductive cough that has been present for the last 2 weeks accompanied by anorexia, continuous malaise and ague, persistent chest burning/tightness, intermittent dyspnea especially with exertion and intermittent fever and chills. Her cough is made worse by deep breathing and talking. She was seen in the emergency room 1 week ago and was treated with Tamiflu for a positive influenza B test. She gained no relief from taking Tamiflu, Tessalon Perles, Bentyl, Phenergan and Zofran and has been having difficulty controlling her fever despite taking Tylenol and Motrin. In the emergency room she was found to have an elevated WBC of 13,400 and a chest x-ray revealing a right upper lobe pneumonia. She was subsequently admitted to the hospital on inpatient observation status for further evaluation and treatment. Physical Exam Vital Signs: Temp Pulse Resp BP Pulse Ox 99.3 F 99 17 122/74 96 08/03/19 07:50 08/03/19 07:50 08/03/19 00:33 08/03/19 07:50 08/03/19 07:50 Pulse Oximeter Continuous Start: 07/31/19 22: 00 Freq: RTQ4 Status: Complete Protocol: Document 08/01/19 08:40 [facility] (Rec: 08/01/19 08:51 [facility] [id number]) Pulse Oximetry Assessment Oxygen Saturation (92-100) 98 Oxygen Delivery Method Room Air Fraction of Inspired Oxygen (FIO2) 21 Equipment Usage Equipment in Use Continuous SpO2 Machine # -- Intake & Output 08/02/19 08/03/19 08/04/19 06:59 06:59 06:59 Intake Total 1830 3290 Output Total 500 Balance 1330 3290 Weight 57.5 kg 58.9 kg General appearance: PRESENT: no acute distress, cooperative Respiratory exam: PRESENT: clear to auscultation [place] Cardiovascular exam: PRESENT: +S1, +S2 Neurological exam: PRESENT: alert, awake Results Laboratory Results: WBC 9.3 10^3/uL (4.0-10.5) 08/03/19 04:55 RBC 3.09 10^6/uL (3.72-5.28) L 08/03/19 04:55 Hgb 7.8 g/dL (12.0-15.5) L 08/03/19 04:55 Hct 23.9 % (36.0-47.0) L 08/03/19 04:55 MCV 77 fl (80-97) L 08/03/19 04:55 MCH 25.3 pg (27.0-33.4) L 08/03/19 04:55 MCHC 32.8 g/dL (32.0-36.0) 08/03/19 04:55 RDW 16.6 % (11.5-14.0) H 08/03/19 04:55 Plt Count 438 10^3/uL (150-450) 08/03/19 04:55 Lymph % (Auto) Not Reportable 08/03/19 04:55 [place] % (Auto) Not Reportable 08/03/19 04:55 Eos % (Auto) Not Reportable 08/03/19 04:55 Baso % (Auto) Not Reportable 08/03/19 04:55 Reticulocyte # 0.017 10^6/uL (0.028-0.122) L 08/01/19 03:05 Absolute Neuts (auto) Not Reportable 08/03/19 04:55 Absolute Lymphs (auto) Not Reportable 08/03/19 04:55 Absolute Monos (auto) Not Reportable 08/03/19 04:55 Absolute Eos (auto) Not Reportable 08/03/19 04:55 Absolute Basos (auto) Not Reportable 08/03/19 04:55 Total Counted 100 08/03/19 04:55 Seg Neutrophils % Not Reportable 08/03/19 04:55 Seg Neuts % (Manual) 75 % (42-78) 08/03/19 04:55 Band Neutrophils % 2 % (3-5) L 08/03/19 04:55 Lymphocytes % (Manual) 15 % (13-45) 08/03/19 04:55 Monocytes % (Manual) 8 % (3-13) 08/03/19 04:55 Eosinophils % (Manual) 0 % (0-6) 08/03/19 04:55 Basophils % (Manual) 0 % (0-2) 08/03/19 04:55 Abs Neuts (Manual) 7.2 10^3/uL (1.7-8.2) 08/03/19 04:55 Abs Lymphs (Manual) 1.4 10^3/uL (0.5-4.7) 08/03/19 04:55 Abs Monocytes (Manual) 0.7 10^3/uL (0.1-1.4) 08/03/19 04:55 Absolute Eos (Manual) 0.0 10^3/uL (0.0-0.6) 08/03/19 04:55 Abs Basophils (Manual) 0.0 10^3/uL (0.0-0.2) 08/03/19 04:55 Toxic Granulation 1+ 08/03/19 04:55 Platelet Comment ADEQUATE 08/03/19 04:55 Polychromasia SLIGHT 08/03/19 04:55 Hypochromasia SLIGHT 08/03/19 04:55 Poikilocytosis SLIGHT 08/03/19 04:55 Anisocytosis 1+ 08/03/19 04:55 Microcytosis SLIGHT 08/03/19 04:55 Ovalocytes SLIGHT 08/03/19 04:55 Retic Count (auto) 0.60 % (0.66-2.85) L 08/01/19 03:05 PT 14.2 SEC (11.4-15.4) 07/31/19 20:32 INR 1.10 07/31/19 20:32 VBG pH 7.43 (7.30-7.42) H 07/31/19 20:32 VBG pCO2 37.0 mmHg (35-63) 07/31/19 20:32 VBG HCO3 24.2 mmol/L (20-32) 07/31/19 20:32 VBG Base Excess 0.2 mmol/L 07/31/19 20:32 Sodium 141.9 mmol/L (137-145) 08/02/19 05:23 Potassium 3.8 mmol/L (3.6-5.0) 08/02/19 05:23 Chloride 106 mmol/L (98-107) 08/02/19 05:23 Carbon Dioxide 25 mmol/L (22-30) 08/02/19 05:23 Anion Gap 11 (5-19) 08/02/19 05:23 BUN 6 mg/dL (7-20) L 08/02/19 05:23 Creatinine 0.46 mg/dL (0.52-1.25) L 08/02/19 05:23 Est GFR ( Amer) > 60 (>60) 08/02/19 05:23 Est GFR (MDRD) Non-Af > 60 (>60) 08/02/19 05:23 Glucose 86 mg/dL (75-110) 08/02/19 05:23 POC Glucose 103 mg/dL (70-110) 07/31/19 20:29 Lactic Acid (Sepsis) 1.3 mmol/L (0.7-2.1) 08/01/19 03:05 Calcium 8.2 mg/dL (8.4-10.2) L 08/02/19 05:23 Iron 14.9 ug/dL (37-170) L 08/01/19 03:05 TIBC 231 ug/dL (250-450) L 08/01/19 03:05 % Saturation 6 % 08/01/19 03:05 Ferritin 57.10 ng/mL (6.2-137.0) 08/01/19 03:05 Total Bilirubin 0.5 mg/dL (0.2-1.3) 07/31/19 18:32 Direct Bilirubin 0.1 mg/dL (0.0-0.4) 07/31/19 18:32 Neonat Total Bilirubin Not Reportable 07/31/19 18:32 Neonat Direct Bilirubin Not Reportable 07/31/19 18:32 Neonat Indirect Bili Not Reportable 07/31/19 18:32 AST 21 U/L (14-36) 07/31/19 18:32 ALT 23 U/L (<35) 07/31/19 18:32 Alkaline Phosphatase 107 U/L (38-126) 07/31/19 18:32 Troponin I < 0.012 ng/mL 07/31/19 20:32 Total Protein 6.8 g/dL (6.3-8.2) 07/31/19 18:32 Albumin 3.5 g/dL (3.5-5.0) 07/31/19 18:32 Vitamin B12 784.0 pg/mL (239-931) 08/01/19 03:05 Folate 6.75 ng/mL (>2.76) 08/01/19 03:05 Serum HCG, Qual NEGATIVE (NEGATIVE) 07/31/19 18:32 Urine Color YELLOW 08/01/19 07:50 Urine Appearance SLIGHTLY-CLOUDY 08/01/19 07:50 Urine pH 5.0 (5.0-9.0) 08/01/19 07:50 Ur Specific [place] 1.018 08/01/19 07:50 Urine Protein NEGATIVE mg/dL (NEGATIVE) 08/01/19 07:50 Urine Glucose (UA) NEGATIVE mg/dL (NEGATIVE) 08/01/19 07:50 Urine Ketones NEGATIVE mg/dL (NEGATIVE) 08/01/19 07:50 Urine Blood NEGATIVE (NEGATIVE) 08/01/19 07:50 Urine Nitrite (Reflex) NEGATIVE (NEGATIVE) 08/01/19 07:50 Urine Bilirubin NEGATIVE (NEGATIVE) 08/01/19 07:50 Urine Urobilinogen NEGATIVE mg/dL (<2.0) 08/01/19 07:50 Leukocyte Esterase Rfl TRACE (NEGATIVE) H 08/01/19 07:50 Urine RBC (Auto) 3 /HPF 08/01/19 07:50 Urine Bacteria (Auto) TRACE /HPF 08/01/19 07:50 Urine WBC (Reflex) 5 /HPF 08/01/19 07:50 Squamous Epi Cells Auto 3 /HPF 08/01/19 07:50 Urine Mucus (Auto) OCC /LPF 08/01/19 07:50 Urine Ascorbic Acid NEGATIVE (NEGATIVE) 08/01/19 07:50 07/31/19 20:32 Troponin I < 0.012 Impressions: Chest X-Ray 07/31/19 17:46 IMPRESSION: Right upper lobe dense consolidation. Plan Time Spent: Less than 30 Minutes Stroke Is this a Stroke Patient?: No Acute Heart Failure - Is this a Heart Failure Patient?: No
[2019-08-03 11:35] VITALS: BP 114/69
== END 2019-08-03 12:42 | disposition home or self-care (01) ==
LOC: ER 17:21 → EH 22:26 → 4S 08-01 00:25
PROVIDERS: ADMIT Emergency Medicine; ATTEND Emergency Medicine
DX: J15.4 Pneumonia due to other streptococci (principal); D50.9 Iron deficiency anemia, unspecified; D72.828 Other elevated white blood cell count; R00.0 Tachycardia, unspecified; Z90.49 Acquired absence of other specified parts of digestive tract
CPT/HCPCS: 93005; 94640 ×3; 99284; 96361; 96375; 96365; 96366; 96367; 36415 ×4; 87040; 87070; 87086; 87205; 82962; 82607; 82728; 82746; 83540; 83550; 84703; 85025 ×2; 85027; 85610; 87077; 85045; 80048 ×2; 80053; 81001; 84484; 87186; 82803; 83605 ×2; 71046; 93010; G0378 ×5; J1644 ×4; J1885; J2270 ×2; J2550 ×3; J0696 ×3; J3490 ×4; J7060 ×2; J7030 ×2; J7050; J0456 ×3; J7614 ×2; J7620; J1439

== ENCOUNTER 2019-10-04 08:37 | Emergency (ER) | payer SELFPAY ==
[2019-10-04 08:55] VITALS: BP 107/60
[2019-10-04] MEDS ORDERED: IBUPROFEN 800 MG TABLET PO ONE (09:29)
--- NOTE | 2019-10-04 09:32 | ER Document Report ---
HPI - HPI Time Seen by Provider: 10/04/19 09:26 Pain Level: 1 Context: Patient is a 38-year-old female who presents emergency department with a chief complaint of body aches. Patient reports she has had a productive cough with yellow sputum since Thursday. Patient also reports fatigue, runny nose, cough, congestion. Patient reports she has not had any vomiting or diarrhea but does report nausea. She states she did have the influenza virus back in July and was recently exposed this past week as her daughter was diagnosed with the flu. Patient reports she did take Tylenol around 7 AM this morning. Patient denies abdominal pain. - CONSTITUTIONAL Constitutional: DENIES: Fever, Chills - EENT EENT: REPORTS: Sore Throat, Ear Pain - NEURO Neurology: REPORTS: Headache. DENIES: Vision blurred - CARDIOVASCULAR Cardiovascular: DENIES: Chest pain - RESPIRATORY Respiratory: REPORTS: Coughing - REPRODUCTIVE LMP: 09/26/19 Reproductive: DENIES: : Past Medical History - General Information source: Patient - Social History Smoking Status: Never Smoker Chew tobacco use (# tins/day): No Frequency of alcohol use: Social Drug Abuse: None Lives with: Family Family History: None. denies: CAD, DM, Hypertension, Malignancy Patient has suicidal ideation: No Patient has homicidal ideation: No - Past Medical History Cardiac Medical History: Reports: None Denies: Hx Congestive Heart Failure, Hx Coronary Artery Disease, Hx Heart Attack, Hx Hypertension Pulmonary Medical History: Reports: Hx Pneumonia Denies: Hx Asthma, Hx Bronchitis, Hx COPD, Hx Tuberculosis EENT Medical History: Reports: None Neurological Medical History: Reports: None. Denies: Hx Seizures, Hx Parkinson's Disease Endocrine Medical History: Reports: None. Denies: Hx Diabetes Mellitus Type 1, Hx Diabetes Mellitus Type 2, Hx Hyperthyroidism, Hx Hypothyroidism Renal/ Medical History: Reports: None. Denies: Hx Kidney Stones Malignancy Medical History: Reports: None GI Medical History: Reports: Hx Gastroesophageal Reflux Disease. Denies: Hx Cirrhosis, Hx Crohn's Disease, Hx Hepatitis, Hx Hiatal Hernia, Hx Ulcer, Hx Ulcerative Colitis Musculoskeletal Medical History: Reports None, Denies Hx Arthritis, Denies Hx Fibromyalgia, Denies Hx Gout, Denies Hx Multiple Sclerosis Skin Medical History: Reports None, Denies Hx Eczema, Denies Hx Psoriasis Psychiatric Medical History: Reports: None Denies: Hx Bipolar Disorder, Hx Depression, Hx Schizophrenia Traumatic Medical History: Reports: None Infectious Medical History: Reports: None. Denies: Hx Hepatitis Past Surgical History: Reports: Hx Section - X 2, Hx Cholecystectomy - Immunizations Hx Diphtheria, Pertussis, Tetanus Vaccination: Yes Vertical Provider Document - CONSTITUTIONAL Agree With Documented VS: Yes Exam Limitations: No Limitations General Appearance: No Apparent Distress Notes: GENERAL: Well-appearing, well-nourished and in no acute distress. HEAD: Atraumatic, normocephalic. EYES: Pupils equal round and reactive to light, extraocular movements intact, sclera anicteric, conjunctiva are normal. ENT: Nares patent, oropharynx clear without exudates. Moist mucous membranes. + Rhinorrhea. NECK: Normal range of motion, supple without lymphadenopathy or JVD. LUNGS: Breath sounds clear to auscultation bilaterally and equal. No wheezes rales or rhonchi. HEART: Regular rate and rhythm without murmurs, rubs or gallops. ABDOMEN: Soft, nontender, normoactive bowel sounds. No guarding, no rebound. No masses appreciated. BACK: No cervical, thoracic, lumbar midline tenderness. No saddle anesthesia, normal distal neurovascular exam. GENITOURINARY: Deferred. EXTREMITIES: Normal range of motion, no pitting or edema. No clubbing or cyanosis. NEUROLOGICAL: Cranial nerves II through XII grossly intact. Normal speech, normal gait. PSYCH: Normal mood, normal affect. SKIN: Warm, Dry, normal turgor, no rashes or lesions noted. - INFECTION CONTROL TRAVEL OUTSIDE OF THE [place] IN LAST 30 DAYS: No Course - Vital Signs Vital signs: Temp Pulse Resp BP Pulse Ox 99.4 F 112 H 16 107/60 97 10/04/19 08:54 10/04/19 08:54 10/04/19 08:54 10/04/19 08:54 10/04/19 08:54 - Laboratory Laboratory results interpreted by ok: 10/04/19 10:57 Laboratory 10/04/19 09:32 Influenza A (Rapid) NEGATIVE Influenza B (Rapid) NEGATIVE Discharge - Discharge Clinical Impression: Body aches, Cough, Congestion of respiratory tract, Chills Condition: Stable Disposition: HOME, SELF-CARE Additional Instructions: Today was seen emergency department for generalized body aches, fever, nasal congestion. Your symptoms have been present since Thursday and although you were exposed to the influenza virus you would not benefit from the antiviral Tamiflu since her symptoms have been present for four days. Your flu test was negative, this is not always 100% accurate and I do believe that you are having flulike symptoms due to your recent exposure. Please make sure you take your anti- nausea medication at home, make sure that you are pushing fluids to stay hydrated, alternating Tylenol and ibuprofen as needed for pain or fever. Please not return to work until you have been fever free for 24 hours. INFLUENZA: The physician feels that you have influenza -- the "flu". Influenza is an infection caused by a virus. Symptoms include generalized aching, fever, headache, dry cough, and fatigue. Some patients with the flu also have nausea, vomiting, and diarrhea. The fever and aches usually last two to four days, with the cough persisting another one to two weeks. Treatment of the flu, for the most part, is simply treatment of symptoms. Rest, drink plenty of fluids, and use acetaminophen for fever and aches. To prevent spread of the virus, use good handwashing. Shared toys should be cleaned with disinfectant. Clean the toilets, sinks, and counter surfaces in bathrooms. Launder clothing in hot water. What are conditions that should receive medical attention? The development of difficulty breathing. Lip color changes to blue or purple. Persistent vomiting and unable to keep liquids down with signs of dehydration such as: dizziness when standing, unable to urinate, or if child/infant is crying no tears are noticed. Is less responsive than normal or becomes confused. How do I decrease the spread of flu in my home? Taking care of the sick patient at home: Keep the sick person in a room separate from the common areas of the house. Keep the "sickroom" door closed. If the person with the flu needs to leave the home, they should cover their nose/mouth when coughing or sneezing and wear a disposable (surgical) mask if available. These masks may be available at your local pharmacy, medical supply and hardware store. If the sick person is in common areas of the house, have them wear a surgical mask. If possible, have the sick person use a separate bathroom that should be cleaned daily with a household disinfectant. If you are the caregiver: Avoid being face to face with the sick adult person as much as possible. Try to stay at least 6 feet away and wear a disposable surgical mask when possible. When holding small children who are sick, place their chin on your shoulder so that they will not cough in your face. Wash your hands after you touch the sick person or handle their tissues and laundry. Wear a mask if you leave home, as you may be infected from taking care of someone and not know it yet. Watch yourself and others in the home for flu symptoms and contact your doctor if symptoms occur. NOTE: Antiviral medication used to reduce the symptoms of the flu works only if taken within 48 hours, and best within 24 hours of symptom onset. Household Cleaning, laundry and waste disposal: Tissues and other disposable items used by the sick person should be thrown away in the trash. Wash your hands after touching these used items. No special waste disposal is required. Keep surfaces (especially bedside tables, bathroom surfaces, and toys for children) clean by wiping them down with a safe household disinfectant according to the directions on the product label. Per Center for Disease Control advice, most people will not receive testing to confirm flu. Also based on the person's health history and onset of symptoms, not all patients will receive prescriptions for antiviral medications. If you have questions related to this, please ask your healthcare provider. For more information, you can call the Centers for Disease Control and Prevention (CDC) Hotline at 7-295-KDTSpring.me This line is available in [place] and [place], 24 hours a day, 7 days a week. Or www.[employer] or www.cdc.gov Flu-Like Illness Home Instructions: The influenza virus infection can cause a wide rage of symptoms, including: Fever, cough, sore throat, body aches, headaches, chills, fatigue, with some patients reporting diarrhea and vomiting Like seasonal influenza A, H1N1 ("swine flu")in humans can vary in severity from mild to severe Severe illness with pneumonia, respiratory failure and even is possible Certain groups might be more likely to develop a severe illness from H1N1 infection. Sometimes bacterial infections may occur at the same time as or after infection with influenza viruses and lead to pneumonias, ear infections, or sinus infections. How Flu Spreads The main way that influenza viruses spread is through respiratory droplets of coughs and sneezes. This can happen when someone with the infection coughs or sneezes and the particles fly through the air and land on other people and surfaces. If the person covers their mouth and nose with their hand but does not wash their hands immediately, then these germs are passed onto the next object that they touch. People with Influenza A or suspected H1N1 (swine flu) who are cared for at home should: Check with their doctor about any special care that they might need if they are or have a health condition such as diabetes, heart disease, asthma or emphysema. Also, limit caregiver to one (if possible). women or those with chronic health conditions should not take care of the flu patient unless necessary. Check with their doctor about whether or not medications are needed that may lessen the symptoms of the flu. Stay at home until 24 hours fever free without the use of fever reducing medication. Get plenty of rest and avoid other healthy people in your home. Drink plenty of clear liquids to keep from getting dehydrated. Take medications like Tylenol (Acetaminophen), Advil/Motrin/Nuprin (Ibuprofen) or Aleve (Naproxen) for fevers and aches. All children under the age of 18 years of age should not take aspirin or products containing aspirin (e.g. Pepto Bismol), as this can cause a rare serious illness called James Syndrome. Over the counter medications for flu and colds may help, but it is very important to follow the package directions. Remember that the medicine may help the symptoms, but it will not help prevent others from getting sick if they are around you. Cover coughs and sneezes using your bent arm. Clean hands with soap and water or an alcohol-based hand rub often, especially after using tissues to cough or sneeze. Encourage hand washing frequently for all people living in the home! The sick person should not have visitors other than caregivers. Encourage concerned loved ones to call instead of visit. Avoid close contact with others-do not go to work or school while sick. USE OF ACETAMINOPHEN (Tylenol): Acetaminophen may be taken for pain relief or fever control. It's much safer than aspirin, offering a wider range of "safe" dosages. It is safe during . Some brand names are Tylenol, Panadol, Datril, Anacin 3, Tempra, and Liquiprin. Acetaminophen can be repeated every four hours. The following are maximum recommended dosages: WEIGHT Dose Drops Elixir Chewable(80mg) (LBS.) drprs=droppers tsp=teaspoon 6 40 mg 0.4 ml (1/2) 6-11 80 mg 0.8 ml (full) tsp 1 tab 12-16 120 mg 1 1/2 drprs 3/4 tsp 1 1/2 tabs 17-23 160 mg 2 drprs 1 tsp 2 tabs 24-30 240 mg 3 drprs 1 1/2 tsp 3 tabs 30-35 320 mg 2 tsp 4 tabs 36-41 360 mg 2 1/4 tsp 4 1/2 tabs 42-47 400 mg 2 1/2 tsp 5 tabs 48-53 480 mg 3 tsp 6 tabs 54-59 520 mg 3 1/4 tsp 6 1/2 tabs 60-64 560 mg 3 1/2 tsp 7 tabs 65-70 600 mg 3 3/4 tsp 7 1/2 tabs 71-76 640 mg 4 tsp 8 tabs 77-82 720 mg 4 1/2 tsp 9 tabs 83-88 800 mg 5 tsp 10 tabs >89 pounds or adults 650 mg to 900 mg Acetaminophen can be repeated every four hours. Maximum dose not to exceed 4000 mg a day. These maximum recommended dosages are slightly higher than the dosages written on the product container, but these dosages are very safe and below the toxic dosage for acetaminophen. FOLLOW-UP CARE: If you have been referred to a physician for follow-up care, call the physicians office for an appointment as you were instructed or within the next two days. If you experience worsening or a significant change in your symptoms, notify the physician immediately or return to the Emergency Department at any time for re-evaluation. Forms: Special Work Note Referrals: MELODY KAUFFMAN PA-C [Primary Care Provider] - Follow up as needed
[2019-10-04 10:50] LABS: A TYPE INFLUENZA AG NEGATIVE (NEGATIVE)
[2019-10-04 10:51] LABS: B INFLUENZA AG NEGATIVE (NEGATIVE)
== END 2019-10-04 11:27 | disposition home or self-care (01) ==
LOC: ER 08:37
DX: M79.10 Myalgia, unspecified site (principal); R51 Headache; H92.09 Otalgia, unspecified ear; R68.83 Chills (without fever); R09.89 Other specified symptoms and signs involving the circulatory and respiratory systems; Z90.49 Acquired absence of other specified parts of digestive tract
CPT/HCPCS: 87804; 99283